=== PATIENT | male | born 1955 | race Hispanic/Latino ===

== ENCOUNTER → 2020-02-10 | Outpatient (CLI) | payer OTHER ==
[~2020-02-10] MED LIST: ALPR0.5T8 PO; ASPI-1005 PO; CETI-193 PO; HYDR-4457 PO; HYDR25TA PO; IBUP-2784 PO; LEVO75TA4 PO; LISI30TA4 PO; METF-446 PO; MINO100T PO; SIMV-46 PO; TRAZ-187 PO
[2020-02-10 17:27] LABS: INR 0.94 (0.85-1.15); PROTHROMBIN TIME 10.2 SEC (9.6-11.6)
[2020-02-10 17:58] LABS: APPEARANCE,URINE Clear (CLEAR); BILIRUBIN,URINE Negative (NEGATIVE); COLOR,URINE Yellow (YELLOW); GLUCOSE, URINE (UA) Negative (NEGATIVE); KETONES,URINE Negative (NEGATIVE); LEUKOCYTE ESTERASE ,URINE Negative (NEGATIVE); NITRATE,URINE Negative (NEGATIVE); OCCULT BLOOD,URINE Negative (NEGATIVE); PH,URINE 5.5 (5.0-8.0); PROTEIN,URINE Negative (NEGATIVE)
== END | disposition home or self-care (01) ==
LOC: DAH 10:00 → EDSTATUS 15:00
PROVIDERS: ATTEND Orthopaedic Surgery
DX: S83.512A Sprain of anterior cruciate ligament of left knee, initial encounter (principal)
CPT/HCPCS: 36415; 81003; 85610; 87641; U0003

== ENCOUNTER 2020-04-25 09:00 | Inpatient (IN) | payer OTHER ==
[~2020-04-25] VITALS: Ht 176.5 cm; Wt 103.3 kg
[2020-04-25 12:48] LABS: BASOPHILS % (AUTO) 0.9 % (0.0-5.0); EOSINOPHILS % (AUTO) 1.7 % (0.0-8.0); HEMATOCRIT 43.3 % (42-54); LYMPHOCYTES % (AUTO) 31.2 % (21.0-51.0); MEAN CORPUSCULAR HEMOGLOBIN 29.1 pg (27.0-33.0); MEAN CORPUSCULAR HGB CONC 33.3 g/dL (32.0-36.0); MEAN CORPUSCULAR VOLUME 87.7 fL (79-99); MONOCYTES % (AUTO) 6.6 % (3.0-13.0); NEUTROPHILS % (AUTO) 58.4 % (40.0-77.0); PLATELET COUNT (AUTO) 340 K/uL (130-400); RED BLOOD CELL COUNT(AUTO) 4.94 MIL/uL (4.50-6.20); RED CELL DISTRIBUTION WIDTH 13.5 % (11.0-15.5); WHITE BLOOD COUNT (AUTO) 7.7 K/uL (4.8-10.8)
[2020-04-25 12:59] LABS: CREATININE 1.3 mg/dL (0.5-1.5); POTASSIUM 4.4 mmol/L (3.5-5.1)
[2020-04-25 13:02] LABS: INR 0.95 (0.85-1.15); PROTHROMBIN TIME 10.3 SEC (9.6-11.6)
[2020-04-25 13:10] LABS: APPEARANCE,URINE Clear (CLEAR); BILIRUBIN,URINE Negative (NEGATIVE); COLOR,URINE Yellow (YELLOW); GLUCOSE, URINE (UA) Negative (NEGATIVE); KETONES,URINE Negative (NEGATIVE); LEUKOCYTE ESTERASE ,URINE Negative (NEGATIVE); NITRATE,URINE Negative (NEGATIVE); OCCULT BLOOD,URINE Negative (NEGATIVE); PH,URINE 5.5 (5.0-8.0); PROTEIN,URINE Negative (NEGATIVE); UROBILINOGEN,URINE 0.2 mg/dL (0.2-1.0)
[2020-05-01] MEDS ORDERED: IBUP-2784 PO (10:39)
[2020-05-01] MEDS ORDERED: HYDR25TA PO (10:39)
[2020-05-01] MEDS ORDERED: METF-446 PO (10:39)
[2020-05-01] MEDS ORDERED: LEVO75TA4 PO (10:39)
[2020-05-01] MEDS ORDERED: CETI-193 PO (10:39)
[2020-05-01] MEDS ORDERED: SIMV-46 PO (10:39)
[2020-05-01] MEDS ORDERED: MINO100T PO (10:39)
[2020-05-01] MEDS ORDERED: ALPR0.5T8 PO (10:39)
[2020-05-01] MEDS ORDERED: TRAZ-187 PO (10:39)
[2020-05-01] MEDS ORDERED: LISI30TA4 PO (10:39)
[2020-05-02] VITALS (24 sets, daily range): BP systolic 139–162; BP diastolic 60–101
[2020-05-02] MEDS: CEFAZOLIN SODIUM 1 GM VIAL IVP SCH ×3 (06:00→20:20)
[2020-05-02] MEDS ORDERED: SODIUM CHLORIDE 0.9% 1000ML 1,000 ML IV ONE (08:03)
[2020-05-02] MEDS ORDERED: CEFAZOLIN SODIUM 1 GM VIAL ONE (10:08)
[2020-05-02] MEDS ORDERED: TRANEXAMIC ACID 1000MG/10ML ONE ×2 (10:08→14:57)
[2020-05-02] MEDS ORDERED: LIDOCAINE PF 2% 5ML ABBOJECT ONE (12:24)
[2020-05-02] MEDS ORDERED: SUCCINYLCHOLINE CHLORIDE 20 MG/ML 10 ML VIAL ONE (12:24)
[2020-05-02] MEDS ORDERED: PROPOFOL 10 MG/ML 20ML VIAL IV ONE ×2 (12:25→14:56)
[2020-05-02] MEDS ORDERED: MIDAZOLAM HCL 1 MG/ML 2ML VIAL ONE (12:25)
[2020-05-02] MEDS ORDERED: FENTANYL CITRATE PF 50 MCG/1 ML 5ML AMP IV ONE (12:34)
[2020-05-02] MEDS ORDERED: ROCURONIUM 10MG/1ML SYR 10 MG/ML ML ONE ×2 (12:35→13:38)
[2020-05-02] MEDS ORDERED: ROPIVACAINE 0.5% 5MG/ML 30ML IJ ONE (12:42)
[2020-05-02] MEDS ORDERED: ONDANSETRON HCL 4 MG/2 ML VIAL ONE (13:02)
[2020-05-02] MEDS ORDERED: DEXAMETHASONE SOD PHOSPHATE 10MG/ML 1ML VIAL ONE (13:02)
[2020-05-02] MEDS ORDERED: NEOSTIGMINE 5MG/5ML SYR IV ONE (13:03)
[2020-05-02] MEDS ORDERED: GLYCOPYRROLATE 1 MG/5 ML SYRINGE ONE (13:03)
[2020-05-02] MEDS ORDERED: CEFAZOLIN SODIUM 1 GM VIAL IRRIG ONE (13:45)
[2020-05-02] MEDS ORDERED: LIDOCAINE HCL-MPF 1% 2ML VIAL IV PRN (14:45)
[2020-05-02] MEDS ORDERED: ONDANSETRON HCL 4 MG/2 ML VIAL IVP PRN (14:45)
[2020-05-02] MEDS ORDERED: POTASSIUM CHLORIDE 20MEQ/100ML 100 ML IV PRN (14:45)
[2020-05-02] MEDS ORDERED: TEMAZEPAM 15 MG CAPSULE PO PRN (14:45)
[2020-05-02] MEDS ORDERED: FERROUS FUMARATE 324 MG TABLET PO PRN (14:45)
[2020-05-02] MEDS ORDERED: POTASSIUM CHLORIDE 10% ELIXIR 20 MEQ/15 ML UDCUP PO PRN (14:45)
[2020-05-02] MEDS ORDERED: POTASSIUM CHLORIDE 20 MEQ ERTAB PO PRN (14:45)
[2020-05-02] MEDS ORDERED: TRAMADOL HCL 50 MG TABLET PO PRN (14:45)
[2020-05-02] MEDS ORDERED: CALCIUM CARBONATE 500 MG TABLET PO PRN (14:45)
[2020-05-02] MEDS ORDERED: DiphenhydrAMINE HCL 50 MG/ML VIAL IVP PRN (14:45)
[2020-05-02] MEDS: ACETAMINOPHEN EXTRA STRENGTH 500 MG TABLET PO SCH ×2 (14:45→23:00)
[2020-05-02] MEDS ORDERED: KETOROLAC TROMETHAMINE 30MG/ML ONE (14:50)
[2020-05-02] MEDS ORDERED: MEPERIDINE-PF 25 MG/ML SYG ONE ×3 (14:51→15:44)
[2020-05-02] MEDS ORDERED: FENTANYL CITRATE PF 50 MCG/1 ML 2ML VIAL ONE (15:14)
[2020-05-02] MEDS: INSULIN HUMULIN R 100 UNIT/ML 3ML SQ SCH ×2 (16:11→21:00)
[2020-05-02] MEDS: SODIUM CHLORIDE 0.9% 1000ML 1,000 ML IV SCH (16:47)
[2020-05-02] MEDS ORDERED: IBUPROFEN 200 MG TAB PO PRN (17:00)
[2020-05-02] MEDS ORDERED: ALPRAZOLAM 0.5 MG TABLET PO PRN (17:00)
[2020-05-02] MEDS: KETOROLAC TROMETHAMINE 15MG/ML IV PRN (17:02)
[2020-05-02] MEDS ORDERED: IBUPROFEN 600 MG TABLET PO PRN (17:45)
[2020-05-02] MEDS: ASPIRIN 81MG TAB.CHEW PO SCH (20:12)
[2020-05-02] MEDS: OXYCODONE HCL 5 MG TAB PO PRN (20:13)
[2020-05-02] MEDS: SIMVASTATIN 20 MG TABLET PO SCH (20:13)
[2020-05-02] MEDS: FAMOTIDINE 20MG TAB 20 MG TAB PO SCH (20:13)
[2020-05-02] MEDS: TRAZODONE HCL 100 MG TABLET PO SCH (20:14)
[2020-05-02] MEDS: CELECOXIB 200 MG CAP PO SCH (20:14)
[2020-05-02] MEDS: PREGABALIN 25 MG CAP PO SCH (20:14)
--- NOTE | 2020-05-02 21:40 | NUR ---
ACTIVITY PATIENT WAS ASSISTED BY REGIONAL CLIMATE CHANGE ANALYST TO DANGLE ON SIDE OF BED FOR A FEW MINUTES. HE TOLERATED WELL AND THEN WAS ASSISTED BACK TO BED. HE PLACED HIS HOME CPAP ON TO SLEEP. ENCOURAGED TO DO IS EXERCISES WHILE AWAKE.
[2020-05-03 00:14] VITALS: BP 105/56
[2020-05-03] MEDS: SODIUM CHLORIDE 0.9% 1000ML 1,000 ML IV SCH ×2 (02:13→10:41)
[2020-05-03] MEDS: OXYCODONE HCL 5 MG TAB PO PRN ×5 (02:18→20:37)
[2020-05-03] MEDS ORDERED: HYDROMORPHONE PCA 10 MG/50 ML 50 ML IV PRN (02:45)
[2020-05-03] MEDS ORDERED: NALOXONE HCL 0.4 MG/1 ML ML IVP PRN (02:45)
[2020-05-03 04:00] LABS: HEMATOCRIT 32.4 % (42-54); MEAN CORPUSCULAR HEMOGLOBIN 29.4 pg (27.0-33.0); MEAN CORPUSCULAR HGB CONC 34.6 g/dL (32.0-36.0); RED BLOOD CELL COUNT(AUTO) 3.81 MIL/uL (4.50-6.20); RED CELL DISTRIBUTION WIDTH 12.9 % (11.0-15.5); WHITE BLOOD COUNT (AUTO) 11.4 K/uL (4.8-10.8)
[2020-05-03 04:13] LABS: CREATININE 1.4 mg/dL (0.5-1.5); POTASSIUM 4.5 mmol/L (3.5-5.1)
[2020-05-03] MEDS: CEFAZOLIN SODIUM 1 GM VIAL IVP SCH (04:55)
[2020-05-03] MEDS: KETOROLAC TROMETHAMINE 15MG/ML IV PRN (04:58)
[2020-05-03 05:24] VITALS: BP 109/61
[2020-05-03] MEDS: INSULIN HUMULIN R 100 UNIT/ML 3ML SQ SCH ×4 (06:55→21:00)
[2020-05-03] MEDS: LEVOTHYROXINE 75 MCG TABLET PO SCH (07:00)
[2020-05-03] MEDS: ACETAMINOPHEN EXTRA STRENGTH 500 MG TABLET PO SCH ×3 (07:01→23:39)
[2020-05-03 08:00] VITALS: BP 106/52
[2020-05-03] MEDS: HYDROCHLOROTHIAZIDE 25 MG TABLET PO SCH (09:00)
[2020-05-03] MEDS: LISINOPRIL 10 MG TABLET PO SCH (09:00)
[2020-05-03] MEDS: ASPIRIN 81MG TAB.CHEW PO SCH ×2 (09:30→20:32)
[2020-05-03] MEDS: MINOCYCLINE HCL 50 MG CAP PO SCH (09:31)
[2020-05-03] MEDS: CELECOXIB 200 MG CAP PO SCH ×2 (09:32→20:33)
[2020-05-03] MEDS: CETIRIZINE HCL 5 MG TABLET PO SCH (09:33)
[2020-05-03] MEDS: FAMOTIDINE 20MG TAB 20 MG TAB PO SCH ×2 (09:33→20:32)
[2020-05-03] MEDS: METFORMIN HCL 500 MG TABLET PO SCH ×2 (09:33→17:03)
[2020-05-03] MEDS: TAMSULOSIN HCL 0.4 MG CAP.ER.24H PO SCH (09:33)
[2020-05-03] MEDS: PREGABALIN 25 MG CAP PO SCH ×2 (09:34→20:33)
[2020-05-03] MEDS: POLYETHYLENE GLYCOL 3350 17 GM POWD.PACK PO SCH (09:35)
--- NOTE | 2020-05-03 10:00 | NUR ---
DCP CM met with pt discussed dc plans. Pt is independent prior to surgery, lives at home with spouse and adult son. Pt has a current standard walker given 10 months ago from prior surgery, cane, cpap. Feels safe to go back home, spouse able to assist with transportation and needs as necessary. Pt given spouse cp# in case needed, pt own cp# . Pt agreeable for home w/HH and DME for 3 in 1 chair, [facility] signed [facility]. DC plan to home w/HH and DME. CM to cont to follow up. Addendum: 05/03/20 at 1638 by DOMINICK MAYFIELD LVN CM Amended: Links added.
--- NOTE | 2020-05-03 10:01 | NUR ---
CM Note: [facility] CM [facility] clinicals, [facility] to [facility]. Pt will need HH and DME 3 in 1 chair. Confirmation received. Spoke to Soheila, will await request to be receive and work on it as soon as received. Pt pending [facility] and [facility] and DME. Dr De updated. Primary nurse aware. CM to cont to follow up.
[2020-05-03 11:45] VITALS: BP 129/65
--- NOTE | 2020-05-03 15:00 | NUR ---
CM Note: [facility] and D[facility] CM spoke to [facility] w[facility], received request, aware dcp tomorrow. As per Soheila working on approval for HH and DME. Pt pending approval and assign HH and DME. Primary nurse aware. CM to cont to follow up.
[2020-05-03 16:00] VITALS: BP 126/63
[2020-05-03 20:08] VITALS: BP 128/66
[2020-05-03] MEDS: TRAZODONE HCL 100 MG TABLET PO SCH (20:32)
[2020-05-03] MEDS: SIMVASTATIN 20 MG TABLET PO SCH (20:32)
[2020-05-04 00:19] VITALS: BP 126/59
[2020-05-04 04:00] VITALS: BP 112/58
[2020-05-04] MEDS: INSULIN HUMULIN R 100 UNIT/ML 3ML SQ SCH ×3 (06:10→16:30)
[2020-05-04] MEDS: LEVOTHYROXINE 75 MCG TABLET PO SCH (06:35)
[2020-05-04] MEDS: ACETAMINOPHEN EXTRA STRENGTH 500 MG TABLET PO SCH ×2 (06:41→14:44)
[2020-05-04 08:26] VITALS: BP 143/71
[2020-05-04] MEDS: CETIRIZINE HCL 5 MG TABLET PO SCH (09:00)
[2020-05-04] MEDS: TAMSULOSIN HCL 0.4 MG CAP.ER.24H PO SCH (09:00)
[2020-05-04] MEDS: KETOROLAC TROMETHAMINE 15MG/ML IV PRN ×2 (09:36→18:11)
[2020-05-04] MEDS: OXYCODONE HCL 5 MG TAB PO PRN ×2 (09:40→13:47)
--- NOTE | 2020-05-04 10:00 | NUR ---
CM Note: [facility] for [facility] CM spoke to [facility], pt has approval for HH assigned [facility] . Has approval for DME 3 in 1 chair, pending to assign DME company, will have 3 in 1 chair delivered at pt's house. Pt has own standard walker no wheels. Pt safe to DC once MD clear. Dr De updated. Primary nurse aware. CM to continue to follow up.
[2020-05-04] MEDS: HYDROCHLOROTHIAZIDE 25 MG TABLET PO SCH (10:44)
[2020-05-04] MEDS: CELECOXIB 200 MG CAP PO SCH (10:45)
[2020-05-04] MEDS: LISINOPRIL 10 MG TABLET PO SCH (10:45)
[2020-05-04] MEDS: PREGABALIN 25 MG CAP PO SCH (10:45)
[2020-05-04] MEDS: ASPIRIN 81MG TAB.CHEW PO SCH (10:46)
[2020-05-04] MEDS: MINOCYCLINE HCL 50 MG CAP PO SCH (10:46)
[2020-05-04] MEDS: FAMOTIDINE 20MG TAB 20 MG TAB PO SCH (10:46)
[2020-05-04] MEDS: POLYETHYLENE GLYCOL 3350 17 GM POWD.PACK PO SCH (10:47)
[2020-05-04] MEDS: METFORMIN HCL 500 MG TABLET PO SCH ×2 (10:56→17:00)
[2020-05-04 11:36] VITALS: BP 102/66
[2020-05-04] MEDS ORDERED: HYDR-4457 PO (16:10)
[2020-05-04] MEDS ORDERED: ASPI-1005 PO (16:10)
--- NOTE | 2020-05-04 18:00 | NUR ---
LEFT KNEE DRESSING CHANGE PERFORMED LEFT KNEE DRESSING CHANGE PRIOR TO DISCHARGE. LEFT KNEE INCISION APPROXIMATED AND ASYMPTOMATIC. CLEANSED WITH BETADINE. APPLIED NEW ALBERTO DRESSING TO LEFT KNEE INCISION. ALBERTO DRESSING FLASHING GREEN. REMOVED 20G IV FROM LEFT HAND, CATHETER TIP INTACT.
[2020-05-05] MEDS ORDERED: BISACODYL 10 MG SUPP.RECT RC PRN (14:45)
== END 2020-05-04 18:40 | disposition home health service (06) | DRG 470 ==
LOC: EDSTATUS 09:00 → DAHIP 05-02 07:15 → 3AH 05-02 16:01
PROVIDERS: ADMIT Orthopaedic Surgery; ATTEND Orthopaedic Surgery
PROC: 0SRD0J9 Replacement of Left Knee Joint with Synthetic Substitute, Cemented, Open Approach (ICD-10-PCS; principal; 2020-05-02 12:22)
DX: M17.32 Unilateral post-traumatic osteoarthritis, left knee (principal); S83.242A Other tear of medial meniscus, current injury, left knee, initial encounter; S83.282A Other tear of lateral meniscus, current injury, left knee, initial encounter; S83.8X2A Sprain of other specified parts of left knee, initial encounter; S83.512A Sprain of anterior cruciate ligament of left knee, initial encounter; F41.9 Anxiety disorder, unspecified; I10 Essential (primary) hypertension; E11.9 Type 2 diabetes mellitus without complications; D64.9 Anemia, unspecified; G89.29 Other chronic pain; G47.33 Obstructive sleep apnea (adult) (pediatric); Z20.828 Contact with and (suspected) exposure to other viral communicable diseases; Y93.89 Activity, other specified; Y92.89 Other specified places as the place of occurrence of the external cause; Y99.8 Other external cause status; Z85.46 Personal history of malignant neoplasm of prostate; Z87.891 Personal history of nicotine dependence; Z87.19 Personal history of other diseases of the digestive system; Z83.3 Family history of diabetes mellitus; Z82.49 Family history of ischemic heart disease and other diseases of the circulatory system
CPT/HCPCS: 36415; 80048; 81003; 82948; 85025; 85027; 85610; 87641; 97039; G0378; J0330; J0690; J1100; J1885; J2001; J2175; J2250; J2405; J2704; J2710; J2795; J3010; J3490; J7030; J7120; U0003